=== PATIENT | male | born 1970 | race Caucasian/White ===

== ENCOUNTER 2017-07-22 01:23 | Emergency (ER) | payer OTHER ==
[2017-07-22 01:33] VITALS: BP 170/101
== END 2017-07-22 03:10 | disposition left against medical advice (07) ==
LOC: ED 01:23
DX: Z53.21 Procedure and treatment not carried out due to patient leaving prior to being seen by health care provider (principal)

== ENCOUNTER 2018-05-24 20:53 | Inpatient (IN) | payer MEDICAID ==
[~2018-05-24] VITALS: Ht 175.3 cm; Wt 117.9 kg
[2018-05-24 21:02] VITALS: Ht 175.3 cm; Wt 117.9 kg
[2018-05-24 21:42] LABS: BASOPHIL % 0 % (0-2); PLATELET COUNT 223 x10^3mcL (130-400); RED CELL DISTRIBUTION WIDTH 13.3 % (11.5-14.5)
[2018-05-24 21:51] LABS: CALCIUM 8.6 mg/dL (8.5-10.1); CARBON DIOXIDE 26.8 mmol/L (21-32); CHLORIDE SERUM 105 mmol/L (98-107); CREATININE SERUM 0.9 mg/dL (0.7-1.3); GFR1 > 60 mL/min; GLUCOSE SERUM 99 mg/dL (74-106); POTASSIUM SERUM 3.7 mmol/L (3.5-5.1); SODIUM SERUM 140 mmol/L (136-145)
[2018-05-24 21:57] LABS: ALBUMIN 3.5 g/dL (3.4-5.0); ALKALINE PHOSPHATASE 85 U/L (46-116); ALT/SGPT 23 U/L (16-63); AST/SGOT 18 U/L (15-37); BILIRUBIN TOTAL 0.56 mg/dL (0.20-1.00); C REACTIVE PROTEIN 2.4 mg/dL (<=0.9); LIPASE 196 IU/L (73-393); TOTAL PROTEIN, SERUM 7.2 g/dL (6.4-8.2)
[2018-05-24 23:18] LABS: CHOLESTEROL/HDL RATIO 3.3; MAGNESIUM 2.1 mg/dL (1.8-2.4); PHOSPHOROUS 2.8 mg/dL (2.5-4.9)
[2018-05-24 23:19] LABS: T3 TOTAL 1.47 ng/mL
[2018-05-24 23:23] LABS: FREE T4 1.01 ng/dL (0.76-1.46); FREE THYROXINE INDEX 2.9 ug/dL (1.4-4.5); T4(THYROXINE) 8.4 ug/dL (4.7-13.3)
[2018-05-25 01:03] VITALS: BP 135/94
[2018-05-25 05:41] VITALS: BP 128/89
[2018-05-25 06:04] LABS: BASOPHIL % 0.3 % (0-2); PLATELET COUNT 190 x10^3mcL (130-400); RED CELL DISTRIBUTION WIDTH 13.6 % (11.5-14.5)
[2018-05-25 06:08] LABS: CALCIUM 7.5 mg/dL (8.5-10.1); CHLORIDE SERUM 104 mmol/L (98-107); CREATININE SERUM 0.7 mg/dL (0.7-1.3); GFR1 > 60 mL/min; GLUCOSE SERUM 93 mg/dL (74-106); POTASSIUM SERUM 3.5 mmol/L (3.5-5.1); SODIUM SERUM 139 mmol/L (136-145)
[2018-05-25 08:54] VITALS: BP 125/75
[2018-05-25 12:54] VITALS: BP 131/86
[2018-05-25 16:43] VITALS: BP 116/78
[2018-05-25 20:56] LABS: microscopic required? YES; urine erythrocyte TRACE (NEGATIVE)
[2018-05-25 21:00] VITALS: BP 138/93
[2018-05-25 21:06] LABS: AMPHETAMINE QUAL UR NONE DETECTED (See below)
[2018-05-26 05:40] VITALS: BP 136/95
[2018-05-26 06:35] LABS: BASOPHIL % 0.4 % (0-2); PLATELET COUNT 200 x10^3mcL (130-400); RED CELL DISTRIBUTION WIDTH 13.4 % (11.5-14.5)
[2018-05-26 06:41] LABS: CALCIUM 8.5 mg/dL (8.5-10.1); CARBON DIOXIDE 28.1 mmol/L (21-32); CHLORIDE SERUM 104 mmol/L (98-107); CREATININE SERUM 0.9 mg/dL (0.7-1.3); GFR1 > 60 mL/min; GLUCOSE SERUM 104 mg/dL (74-106); POTASSIUM SERUM 3.7 mmol/L (3.5-5.1); SODIUM SERUM 141 mmol/L (136-145)
[2018-05-26 09:23] VITALS: BP 136/90
[2018-05-26 13:53] VITALS: BP 141/88
[2018-05-26] MEDS ORDERED: FLA250 PO (14:19)
[2018-05-26 14:31] VITALS: BP 141/88
[2018-05-26] MEDS ORDERED: LEVOFLOXACIN500 M1 PO (14:34)
[2018-05-26] MEDS ORDERED: TOR10 PO (14:37)
[2018-05-26 17:36] VITALS: BP 133/71
== END 2018-05-26 20:15 | disposition home or self-care (01) | DRG 249 ==
LOC: ED 20:53 → DU 22:45
PROVIDERS: Emergency Medicine; Family Medicine; Internal Medicine
DX: K52.9 Noninfective gastroenteritis and colitis, unspecified (principal); I16.0 Hypertensive urgency; Z68.39 Body mass index [BMI] 39.0-39.9, adult; Z88.5 Allergy status to narcotic agent
CPT/HCPCS: 83880; 84439; C9113; J0500; J1885; J1956; J2270; J2405; J3490; J7030; Q0092

== ENCOUNTER 2019-05-14 17:33 | Emergency (ER) | payer OTHER ==
[~2019-05-14] VITALS: Ht 172.7 cm; Wt 132.0 kg
[~2019-05-14 17:33] MED LIST: FLA250 PO; LEVOFLOXACIN500 M1 PO; TOR10 PO
[2019-05-14 17:41] VITALS: Ht 172.7 cm; Wt 132.0 kg
[2019-05-14 18:22] VITALS: BP 153/101
== END 2019-05-14 18:57 | disposition home or self-care (01) ==
LOC: ED 17:33
DX: J20.9 Acute bronchitis, unspecified (principal); Z88.5 Allergy status to narcotic agent
CPT/HCPCS: J7512

== ENCOUNTER 2019-09-28 21:47 | Emergency (ER) | payer MEDICAID ==
[~2019-09-28] VITALS: Ht 180.3 cm; Wt 131.5 kg
[2019-09-28 21:54] VITALS: Ht 180.3 cm; Wt 131.5 kg
[2019-09-29 00:07] VITALS: BP 130/74
== END 2019-09-29 00:07 | disposition home or self-care (01) ==
LOC: ED 21:47
DX: B34.9 Viral infection, unspecified (principal); R03.0 Elevated blood-pressure reading, without diagnosis of hypertension; Z88.5 Allergy status to narcotic agent

== ENCOUNTER 2020-08-29 20:49 | Emergency (ER) | payer OTHER ==
[~2020-08-29] VITALS: Ht 172.7 cm; Wt 127.0 kg
[~2020-08-29 20:49] MED LIST changes: +GUAIFENESI100 MG/5 M PO; +MEDROL DOSEPAK4 MG PO; +ROBL; +THERAFLU EXPRE1 EAC1 PO; +VENTOLIN H0.09 MG/A1 INH; +ZES20 PO; +ZITHROMAX TRI-500 MG PO
[2020-08-29 20:51] VITALS: BP 143/90; Ht 172.7 cm; Wt 127.0 kg
== END 2020-08-29 21:05 | disposition left against medical advice (07) ==
LOC: ED 20:49
DX: Z53.21 Procedure and treatment not carried out due to patient leaving prior to being seen by health care provider (principal)

== ENCOUNTER 2020-08-29 21:23 | Emergency (ER) | payer OTHER, SELFPAY ==
[~2020-08-29] VITALS: Ht 172.7 cm; Wt 127.0 kg
[2020-08-29 21:30] VITALS: Ht 172.7 cm; Wt 127.0 kg
[2020-08-29 23:27] VITALS: BP 123/63
== END 2020-08-29 23:27 | disposition home or self-care (01) ==
LOC: ED 21:23
DX: J45.909 Unspecified asthma, uncomplicated (principal); I10 Essential (primary) hypertension; Z88.5 Allergy status to narcotic agent; Z20.828 Contact with and (suspected) exposure to other viral communicable diseases
CPT/HCPCS: J3535; Q0092; U0003-CS

== ENCOUNTER 2020-11-05 11:25 | Emergency (ER) | payer OTHER ==
[~2020-11-05] VITALS: Ht 172.7 cm; Wt 127.0 kg
[2020-11-05 12:02] VITALS: Ht 172.7 cm; Wt 127.0 kg
[2020-11-05 14:01] VITALS: BP 108/74
== END 2020-11-05 14:01 | disposition home or self-care (01) ==
LOC: ED 11:25
DX: U07.1 COVID-19 (principal); J12.89 Other viral pneumonia; I10 Essential (primary) hypertension; Z88.5 Allergy status to narcotic agent

== ENCOUNTER 2020-11-07 13:20 | Emergency (ER) | payer OTHER, SELFPAY ==
[~2020-11-07] VITALS: Ht 172.7 cm; Wt 127.0 kg
[2020-11-07 13:26] VITALS: Ht 172.7 cm; Wt 127.0 kg
[2020-11-07 16:12] LABS: CALCIUM 8.3 mg/dL (8.5-10.1); CARBON DIOXIDE 26.4 mmol/L (21-32); CHLORIDE SERUM 98 mmol/L (98-107); CREATININE SERUM 1.1 mg/dL (0.7-1.3); GFR1 > 60 mL/min; GLUCOSE SERUM 108 mg/dL (74-106); POTASSIUM SERUM 3.9 mmol/L (3.5-5.1); SODIUM SERUM 133 mmol/L (136-145)
[2020-11-07 16:13] LABS: BASOPHIL % 0.1 % (0.2-1.5); PLATELET COUNT 181 x10^3mcL (152-348); RED CELL DISTRIBUTION WIDTH 13.9 % (12.1-16.2)
[2020-11-07 16:17] LABS: ALKALINE PHOSPHATASE 55 U/L (46-116); ALT/SGPT 33 U/L (16-63); AST/SGOT 50 U/L (15-37); BILIRUBIN TOTAL 0.7 mg/dL (0.20-1.00); TOTAL PROTEIN, SERUM 7.9 g/dL (6.4-8.2)
[2020-11-07 16:20] LABS: ALBUMIN 3.2 g/dL (3.4-5.0)
[2020-11-07 17:29] VITALS: BP 110/75
== END 2020-11-07 17:29 | disposition home or self-care (01) ==
LOC: ED 13:20
PROVIDERS: Emergency Medicine
DX: U07.1 COVID-19 (principal); I10 Essential (primary) hypertension; Z88.5 Allergy status to narcotic agent
CPT/HCPCS: U0003